=== PATIENT | female | born 1955 ===

== ENCOUNTER 2021-10-24 05:30 | Day surgery (SDC) | payer OTHER | END 2021-10-24 09:15 | disposition home or self-care (01) | LOC: AMB-ENDOS 05:30 | PROVIDERS: ATTEND Colon & Rectal Surgery | DX: D12.7 Benign neoplasm of rectosigmoid junction (principal); Z20.822 Contact with and (suspected) exposure to COVID-19; Z86.010 Personal history of colon polyps; K64.2 Third degree hemorrhoids; E03.9 Hypothyroidism, unspecified; I10 Essential (primary) hypertension; M79.7 Fibromyalgia; Z88.0 Allergy status to penicillin ==